=== PATIENT | male | born 1990 | race Two or more races ===

== ENCOUNTER 2018-10-19 16:02 | Emergency (ER) | payer OTHER ==
[~2018-10-19] VITALS: Ht 180.3 cm; Wt 111.6 kg
[2018-10-19 16:12] VITALS: BP 157/102
[2018-10-19] MEDS ORDERED: FAMOTIDINE 20 MG TABLET PO ONE (16:30)
[2018-10-19] MEDS ORDERED: ONDANSETRON ODT 4 MG PO ONE (16:30)
[2018-10-19] MEDS ORDERED: MAALOX/HYOSCYAMINE/LIDOCAINE 45 ML BTL PO ONE (16:30)
[2018-10-19 17:06] LABS: BASOPHILS # (AUTO) 0.02 x10^3/uL (0-0.1); BASOPHILS % (AUTO) 0 % (0-1); EOSINOPHILS # (AUTO) 0.17 x10^3/uL (0-0.4); EOSINOPHILS % (AUTO) 3 % (1-7); LYMPHOCYTES # (AUTO) 1.12 x10^3/uL (1-3.4); LYMPHOCYTES % (AUTO) 20 % (22-44); MD NO; MEAN CORPUSCULAR HEMOGLOBIN 30.4 pg (27.5-34.5); MEAN CORPUSCULAR HGB CONC 34.4 g/dL (33.2-36.2); MEAN CORPUSCULAR VOLUME 88.4 fL (81-97); MEAN PLATELET VOLUME 8.3 fL (7.4-10.4); MONOCYTES # (AUTO) 0.49 x10^3/uL (0.2-0.8); MONOCYTES % (AUTO) 9 % (2-9); NEUTROPHILS # (AUTO) 3.91 x10^3/uL (1.8-6.8); NEUTROPHILS % (AUTO) 69 % (42-75); PLATELET COUNT 231 x10^3/uL (130-400); RED BLOOD COUNT 5.55 x10^6/uL (4.38-5.82); RED CELL DISTRIBUTION WIDTH 13.3 % (9.4-14.8)
[2018-10-19 17:18] LABS: ALBUMIN 4.2 g/dL (3.4-5.0); ANION GAP 6 mmol/L (5-15); CHLORIDE 103 mmol/L (98-107)
[2018-10-19 17:21] LABS: ALANINE AMINOTRANSFERASE 134 U/L (12-78); ALKALINE PHOSPHATASE 64 U/L (45-117); CREATININE 1.05 mg/dL (0.7-1.3); TOTAL PROTEIN 8.4 g/dL (6.4-8.2)
--- NOTE | 2018-10-19 17:50 | NUR ---
Pt ambulatory to 33 from [facility]
[2018-10-19] MEDS ORDERED: MAALOX/HYOSCYAMINE/LIDOCAINE 45 ML BTL ONE (18:02)
--- NOTE | 2018-10-19 18:08 | NUR ---
PT ARRIVES TO ED WITH ABD PAIN X2 DAYS. PT REPORTS THAT THE PAIN IS SHARP AND BURNING AFTER EATING SPICY FOODS. PT REPORTS THAT THE PAIN COMES AGO. FEELS LIKE HIS NAUSEA BUT NO VOMITTING. PT GIVEN GI COCKTAIL. AND REPORTS THAT MADE HIS ABD FEEL BETTER. PER MD MICHELLE PT TO NOT HAVE ZOFRAN AND PEPCID JUST GI COCKTAIL.
--- NOTE | 2018-10-19 18:12 | NUR ---
Patient/Caregiver given discharge instructions and they have confirmed that they understand the instructions. Patient ambulatory with steady gait.
--- NOTE | 2018-10-19 18:40 | NUR ---
Patient/Caregiver given discharge instructions and they have confirmed that they understand the instructions. Patient ambulatory with steady gait.
== END 2018-10-19 18:41 | disposition home or self-care (01) ==
LOC: ED 18:00
DX: K29.00 Acute gastritis without bleeding (principal)
CPT/HCPCS: 36415; 76700; 80053; 83690; 85025; 99284

== ENCOUNTER 2020-02-08 11:15 | Emergency (ER) | payer OTHER ==
[~2020-02-08] VITALS: Ht 175.3 cm; Wt 112.4 kg
[2020-02-08] MEDS ORDERED: METF500T17 PO (11:24)
--- NOTE | 2020-02-08 11:48 | NUR ---
Pt states sudden onset Rt sided "rib" pain starting 3 days ago. States pain is worse at night and radiates to Rt low abd. Lab at bedside for lab draw. Pt awaiting u/s. Will follow orders.
[2020-02-08 11:57] LABS: BASOPHILS # (AUTO) 0.03 x10^3/uL (0-0.1); BASOPHILS % (AUTO) 1 % (0-1); EOSINOPHILS # (AUTO) 0.07 x10^3/uL (0-0.4); EOSINOPHILS % (AUTO) 1 % (1-7); LYMPHOCYTES # (AUTO) 1.47 x10^3/uL (1-3.4); LYMPHOCYTES % (AUTO) 31 % (22-44); MD NO; MEAN CORPUSCULAR HGB CONC 34.5 g/dL (33.2-36.2); MEAN CORPUSCULAR VOLUME 86.9 fL (81-97); MEAN PLATELET VOLUME 8.6 fL (7.4-10.4); MONOCYTES # (AUTO) 0.33 x10^3/uL (0.2-0.8); MONOCYTES % (AUTO) 7 % (2-9); NEUTROPHILS # (AUTO) 2.79 x10^3/uL (1.8-6.8); NEUTROPHILS % (AUTO) 60 % (42-75); PLATELET COUNT 222 x10^3/uL (130-400); RED BLOOD COUNT 5.34 x10^6/uL (4.38-5.82); RED CELL DISTRIBUTION WIDTH 13.2 % (9.4-14.8)
--- NOTE | 2020-02-08 12:08 | NUR ---
Lunch RN: pt resting in bed, no needs at this time.
[2020-02-08 12:12] LABS: ALANINE AMINOTRANSFERASE 82 U/L (12-78); ANION GAP 5 mmol/L (5-15); CHLORIDE 105 mmol/L (98-107); CREATININE 1.14 mg/dL (0.7-1.3)
[2020-02-08 12:15] LABS: ALKALINE PHOSPHATASE 46 U/L (45-117); BILIRUBIN,TOTAL 0.8 mg/dL (0.2-1.0); TOTAL PROTEIN 7.8 g/dL (6.4-8.2)
--- NOTE | 2020-02-08 13:03 | NUR ---
report from BRODERICK Ocampo. pt resting in room with eyes closed. vss. no needs expressed. call light within reach. chart up for recheck.
[2020-02-08 13:57] VITALS: BP 139/88
== END 2020-02-08 14:08 | disposition home or self-care (01) ==
LOC: ED 13:14
DX: R10.11 Right upper quadrant pain (principal)
CPT/HCPCS: 36415; 71045; 76700; 80053; 83690; 85025; 93005; 99285